=== PATIENT | female | born 1955 | race Native Hawaiian/Other Pacific Islander ===

== ENCOUNTER 2022-08-09 08:29 | Outpatient (CLI) | payer BC | END 2022-08-09 18:51 | LOC: RAD 08:29 → MAMMO 08:29 | PROVIDERS: ATTEND Nurse Practitioner Family | DX: N95.8 Other specified menopausal and perimenopausal disorders (principal); Z12.31 Encounter for screening mammogram for malignant neoplasm of breast ==

== ENCOUNTER 2022-08-15 08:56 | Outpatient (CLI) | payer BC | END 2022-08-15 18:54 | disposition home or self-care (01) | LOC: MAMMO 08:56 | PROVIDERS: ATTEND Internal Medicine | DX: Z12.31 Encounter for screening mammogram for malignant neoplasm of breast (principal) ==

== ENCOUNTER 2022-11-24 08:12 | Outpatient (CLI) | payer BC | END 2022-11-24 19:10 | disposition home or self-care (01) | LOC: US 08:12 | PROVIDERS: ATTEND Internal Medicine | DX: R10.11 Right upper quadrant pain (principal); R11.2 Nausea with vomiting, unspecified ==